=== PATIENT | male | born 1990 | race African-American/Black ===

== ENCOUNTER 2019-06-05 12:42 | Inpatient (IN) | payer OTHER ==
[~2019-06-05] VITALS: Ht 170.2 cm; Wt 45.5 kg
[~2019-06-05 12:42] MED LIST: ACET325T33 PO; ASC500 PO; ATEN-138 PO; BUSP5TAB2 PO; CAPS60CR2 TOP; DEXT37.54 PO; DULO30CA45 PO; Insulin Glargine SC; LAMO25TA8 PO; LYRI100 PO; NOVO3I SC; OMEP20CA17 PO; ONDA4TAB95 PO; POLY17PO6 PO; TRAZ-188 PO; UDMYL PO
[2019-06-05 14:15] VITALS: BP 103/66; PULSE 86; RESP 24
[2019-06-05 16:21] VITALS: Ht 170.2 cm; Wt 45.5 kg
[2019-06-05] MEDS ORDERED: ACETAMINOPHEN 325 MG TAB PO PRN (17:00)
[2019-06-05] MEDS ORDERED: NACL 0.9% 3 ML SYG IV SCH (17:00)
[2019-06-05] MEDS ORDERED: DOCUSATE SODIUM 100 MG CAP PO PRN (17:00)
[2019-06-05] MEDS ORDERED: AL HYDROX/MG HYDROX/SIMETH 30 ML CUP PO PRN (17:00)
[2019-06-05] MEDS ORDERED: GLUCOSE GEL 15 GRAM TUBE BUCCAL PRN (17:30)
[2019-06-05] MEDS ORDERED: GLUCOSE GEL 15 GRAM TUBE PO PRN ×2 (17:30)
[2019-06-05] MEDS ORDERED: GLUCAGON 1 MG INJ IM PRN (17:30)
[2019-06-05] MEDS ORDERED: DEXTROSE 50% 50 ML SYRINGE IV PRN ×2 (17:30)
[2019-06-05 18:00] VITALS: BP 109/68; PULSE 109; RESP 16
[2019-06-05] MEDS ORDERED: VANCOMYCIN IV PER PHARMACY XX SCH (18:30)
[2019-06-05] MEDS: KETOROLAC 30 MG INJ IV PRN ×2 (18:34→19:52)
[2019-06-05] MEDS ORDERED: VANCOMYCIN 1 GM 250 ML IVPB SCH (18:45)
[2019-06-05 19:36] VITALS: BP 121/79; PULSE 99; RESP 18
[2019-06-05] MEDS ORDERED: INSULIN GLARGINE [LANTus] (100 UNITS/ML) SYG SC SCH (20:00)
[2019-06-05] MEDS: ALBUTEROL/IPRATROPIUM (NEB) 3 ML AMP HHN SCH (20:54)
[2019-06-05] MEDS: CAPSAICIN 0.025% 60 GM CR TOP SCH (21:00)
[2019-06-05] MEDS: PREGABALIN 100 MG CAP PO SCH (21:18)
[2019-06-05] MEDS: PSYLLIUM (SUGAR FREE) PACKET PO SCH (21:18)
[2019-06-05] MEDS: FAMOTIDINE 20 MG INJ IV SCH (21:18)
[2019-06-05] MEDS: CEFTRIAXONE 2 GM/NS 50 ML IVPB SCH (21:18)
[2019-06-05 23:21] VITALS: BP 107/61; PULSE 104; RESP 21
[2019-06-06] MEDS: KETOROLAC 30 MG INJ IV PRN ×4 (00:26→20:22)
[2019-06-06] MEDS: ALBUTEROL/IPRATROPIUM (NEB) 3 ML AMP HHN SCH ×5 (02:06→20:03)
[2019-06-06] MEDS: HYDROCODONE/APAP (5/325) TAB PO PRN (02:52)
[2019-06-06 03:34] VITALS: BP 111/63; PULSE 101; RESP 23
[2019-06-06] MEDS: PANTOPRAZOLE (EC) 40 MG TAB PO SCH (05:56)
[2019-06-06] MEDS: ERYTHROMYCIN BASE (DR) 250 MG CAP PO SCH ×3 (05:56→22:05)
[2019-06-06] MEDS: INSULIN ASPART [NOVOLOG] 3 ML PEN SC SCH ×5 (08:00→20:39)
[2019-06-06 08:06] VITALS: BP 182/94; PULSE 102; RESP 22
[2019-06-06] MEDS: PSYLLIUM (SUGAR FREE) PACKET PO SCH (08:09)
[2019-06-06] MEDS: CAPSAICIN 0.025% 60 GM CR TOP SCH ×3 (08:09→21:00)
[2019-06-06] MEDS: PREGABALIN 100 MG CAP PO SCH ×2 (08:55→22:05)
[2019-06-06] MEDS: FAMOTIDINE 20 MG INJ IV SCH ×2 (08:55→20:29)
[2019-06-06] MEDS: DULOXETINE 30 MG CAP DR PO SCH (08:56)
[2019-06-06] MEDS ORDERED: CEFTRIAXONE 1 GM INJ IVPB SCH (09:00)
[2019-06-06] MEDS: ENOXAPARIN 30 MG/0.3 ML SYG SC SCH (09:17)
[2019-06-06] MEDS ORDERED: POTASSIUM CHLORIDE 100 ML IVPB ONE (10:00)
[2019-06-06] MEDS ORDERED: POTASSIUM PHOSPHATE 30 MM in SOD CHLORIDE 0.9% 250 ML IVPB ONE (12:00)
[2019-06-06 12:08] VITALS: BP 108/61; PULSE 118; RESP 18
[2019-06-06] MEDS: VANCOMYCIN 500 MG (PMX) 100 ML IVPB SCH (14:24)
[2019-06-06 15:35] VITALS: BP 112/60; PULSE 118; RESP 18
[2019-06-06] MEDS ORDERED: INSULIN ASPART [NOVOLOG] 3 ML PEN SC SCH (17:00)
[2019-06-06] MEDS ORDERED: SOD CHLORIDE 0.9% 500 ML IV ONE ×2 (17:30→21:30)
[2019-06-06 19:54] VITALS: BP 125/72; PULSE 112; RESP 18
[2019-06-06] MEDS ORDERED: INSULIN GLARGINE [LANTus] (100 UNITS/ML) SYG SC SCH (20:00)
[2019-06-06] MEDS: CEFTRIAXONE 2 GM/NS 50 ML IVPB SCH (20:29)
[2019-06-06] MEDS: INSULIN GLARGINE [LANTus] (100 UNITS/ML) SYG SC SCH (20:31)
[2019-06-06] MEDS: ALBUTEROL/IPRATROPIUM (NEB) 3 ML AMP HHN PRN (22:38)
[2019-06-06 23:13] VITALS: BP 120/75; PULSE 114; RESP 18
[2019-06-07] MEDS: VANCOMYCIN 500 MG (PMX) 100 ML IVPB SCH ×2 (00:19→12:26)
[2019-06-07] MEDS: ACCU-CHEK XX SCH (02:08)
[2019-06-07] MEDS: ALBUTEROL/IPRATROPIUM (NEB) 3 ML AMP HHN PRN ×2 (02:17→06:21)
[2019-06-07] MEDS: KETOROLAC 30 MG INJ IV PRN ×4 (02:54→20:45)
[2019-06-07 03:45] VITALS: BP 135/85; PULSE 110; RESP 18
[2019-06-07] MEDS: ERYTHROMYCIN BASE (DR) 250 MG CAP PO SCH ×3 (06:13→23:15)
[2019-06-07] MEDS: PANTOPRAZOLE (EC) 40 MG TAB PO SCH (06:13)
[2019-06-07] MEDS ORDERED: morphine 2 MG INJ IV ONE (06:48)
[2019-06-07 07:50] VITALS: BP 146/79; PULSE 114; RESP 18
[2019-06-07] MEDS: INSULIN ASPART [NOVOLOG] 3 ML PEN SC SCH ×4 (07:53→20:31)
[2019-06-07] MEDS: DULOXETINE 30 MG CAP DR PO SCH (08:04)
[2019-06-07] MEDS: PREGABALIN 100 MG CAP PO SCH ×2 (08:04→20:31)
[2019-06-07] MEDS: FAMOTIDINE 20 MG INJ IV SCH ×2 (08:06→20:30)
[2019-06-07] MEDS: ENOXAPARIN 30 MG/0.3 ML SYG SC SCH (08:08)
[2019-06-07] MEDS: CAPSAICIN 0.025% 60 GM CR TOP SCH ×3 (08:10→20:53)
[2019-06-07] MEDS: ALBUTEROL/IPRATROPIUM (NEB) 3 ML AMP HHN SCH ×3 (09:05→16:06)
[2019-06-07 12:40] VITALS: BP 124/83; PULSE 115; RESP 18
[2019-06-07] MEDS: traZODone 50 MG TAB PO SCH ×2 (15:14→20:31)
[2019-06-07 16:28] VITALS: BP 115/74; PULSE 125; RESP 19
[2019-06-07] MEDS ORDERED: POTASSIUM CHLORIDE (SR) 20 MEQ TAB PO STA (17:48)
[2019-06-07] MEDS ORDERED: POTASSIUM CHLORIDE 20 MEQ POWDER FOR ORAL SOLN PO ONE (18:00)
[2019-06-07] MEDS: ONDANSETRON 4 MG INJ IV PRN (19:28)
[2019-06-07 20:00] VITALS: BP 128/75; PULSE 119; RESP 19
[2019-06-07] MEDS: CEFTRIAXONE 2 GM/NS 50 ML IVPB SCH (20:24)
[2019-06-07] MEDS: INSULIN GLARGINE [LANTus] (100 UNITS/ML) SYG SC SCH (20:26)
[2019-06-07] MEDS: LEVALBUTEROL (NEB) 1.25 MG/0.5 ML AMP HHN PRN (21:36)
[2019-06-07] MEDS: LEVALBUTEROL (NEB) 0.63 MG/3 ML AMP HHN SCH (23:31)
[2019-06-08] MEDS ORDERED: ALBUTEROL/IPRATROPIUM (NEB) 3 ML AMP HHN SCH
[2019-06-08] MEDS: VANCOMYCIN 500 MG (PMX) 100 ML IVPB SCH ×2 (00:16→12:14)
[2019-06-08] MEDS: ACCU-CHEK XX SCH (02:00)
[2019-06-08 04:00] VITALS: BP 120/74; PULSE 112; RESP 20
[2019-06-08] MEDS: LEVALBUTEROL (NEB) 1.25 MG/0.5 ML AMP HHN PRN (04:02)
[2019-06-08] MEDS: KETOROLAC 30 MG INJ IV PRN ×2 (04:08→11:05)
[2019-06-08] MEDS: ERYTHROMYCIN BASE (DR) 250 MG CAP PO SCH ×3 (06:23→23:00)
[2019-06-08] MEDS: INSULIN ASPART [NOVOLOG] 3 ML PEN SC SCH ×4 (07:46→20:23)
[2019-06-08] MEDS: LEVALBUTEROL (NEB) 0.63 MG/3 ML AMP HHN SCH ×3 (07:51→23:26)
[2019-06-08] MEDS: traZODone 50 MG TAB PO SCH ×3 (08:47→20:24)
[2019-06-08] MEDS: CAPSAICIN 0.025% 60 GM CR TOP SCH ×3 (08:47→20:24)
[2019-06-08] MEDS: DULOXETINE 30 MG CAP DR PO SCH (08:47)
[2019-06-08] MEDS: ENOXAPARIN 40 MG/0.4 ML SYG SC SCH (08:49)
[2019-06-08 08:51] VITALS: BP 132/70; PULSE 110; RESP 19
[2019-06-08] MEDS: PREGABALIN 100 MG CAP PO SCH ×2 (08:54→20:23)
[2019-06-08] MEDS: FAMOTIDINE 20 MG TAB PO SCH ×2 (08:56→20:23)
[2019-06-08] MEDS: ALBUTEROL/IPRATROPIUM (NEB) 3 ML AMP HHN PRN (10:52)
[2019-06-08 12:03] VITALS: BP 115/66; PULSE 120; RESP 18
[2019-06-08 15:32] VITALS: BP 114/73; PULSE 120; RESP 18
[2019-06-08] MEDS: HYDROCODONE/APAP (5/325) TAB PO PRN (18:22)
[2019-06-08] MEDS: GUAIFENESIN/DM 5ML CUP PO PRN (18:28)
[2019-06-08] MEDS ORDERED: INSULIN GLARGINE [LANTus] (100 UNITS/ML) SYG SC SCH (20:00)
[2019-06-08] MEDS: CEFTRIAXONE 2 GM/NS 50 ML IVPB SCH (20:20)
[2019-06-08 20:53] VITALS: BP 106/84; PULSE 113; RESP 18
[2019-06-09] VITALS (7 sets, daily range): BP systolic 101–131; BP diastolic 59–81; PULSE 102–120; RESP 16–22
[2019-06-09] MEDS ORDERED: HYDROCODONE/APAP (10/325) TAB PO PRN
[2019-06-09] MEDS: VANCOMYCIN 500 MG (PMX) 100 ML IVPB SCH ×2 (00:24→11:07)
[2019-06-09] MEDS: FUROSEMIDE 40 MG TAB PO SCH ×2 (00:30→05:49)
[2019-06-09] MEDS: GUAIFENESIN/DM 5ML CUP PO PRN ×2 (00:38→11:07)
[2019-06-09] MEDS: ACCU-CHEK XX SCH (01:39)
[2019-06-09] MEDS: LEVALBUTEROL (NEB) 1.25 MG/0.5 ML AMP HHN PRN ×3 (05:46→21:31)
[2019-06-09] MEDS: LEVALBUTEROL (NEB) 0.63 MG/3 ML AMP HHN SCH ×2 (08:43→16:45)
[2019-06-09] MEDS: CAPSAICIN 0.025% 60 GM CR TOP SCH ×3 (08:54→21:00)
[2019-06-09] MEDS: traZODone 50 MG TAB PO SCH ×3 (09:00→21:00)
[2019-06-09] MEDS: ERYTHROMYCIN BASE (DR) 250 MG CAP PO SCH ×2 (09:00→21:34)
[2019-06-09] MEDS: FAMOTIDINE 20 MG TAB PO SCH ×2 (09:00→21:00)
[2019-06-09] MEDS: PREGABALIN 100 MG CAP PO SCH ×2 (09:00→21:00)
[2019-06-09] MEDS: DULOXETINE 30 MG CAP DR PO SCH (09:00)
[2019-06-09] MEDS: ENOXAPARIN 40 MG/0.4 ML SYG SC SCH (09:07)
[2019-06-09] MEDS: INSULIN ASPART [NOVOLOG] 3 ML PEN SC SCH ×4 (09:09→20:51)
[2019-06-09] MEDS: morphine 2 MG INJ IV PRN ×3 (14:08→22:47)
[2019-06-09] MEDS: PROMETHAZINE/CODEINE 5ML CUP PO PRN ×2 (16:55→22:01)
[2019-06-09] MEDS ORDERED: INSULIN ASPART [NOVOLOG] 3 ML PEN SC SCH (18:00)
[2019-06-09] MEDS ORDERED: INSULIN GLARGINE [LANTus] (100 UNITS/ML) SYG SC SCH (20:00)
[2019-06-09] MEDS: CEFTRIAXONE 2 GM/NS 50 ML IVPB SCH (20:36)
[2019-06-10] VITALS (11 sets, daily range): BP systolic 84–139; BP diastolic 55–93; PULSE 100–120; RESP 15–26
[2019-06-10] MEDS: LEVALBUTEROL (NEB) 0.63 MG/3 ML AMP HHN SCH ×3 (00:02→16:35)
[2019-06-10] MEDS: VANCOMYCIN 500 MG (PMX) 100 ML IVPB SCH ×2 (00:30→12:52)
[2019-06-10] MEDS: ACCU-CHEK XX SCH (02:00)
[2019-06-10] MEDS: morphine 2 MG INJ IV PRN ×5 (02:38→20:10)
[2019-06-10] MEDS: INSULIN ASPART [NOVOLOG] 3 ML PEN SC SCH ×7 (08:00→20:28)
[2019-06-10] MEDS: CAPSAICIN 0.025% 60 GM CR TOP SCH ×3 (09:00→20:18)
[2019-06-10] MEDS: PREGABALIN 100 MG CAP PO SCH (09:46)
[2019-06-10] MEDS: FAMOTIDINE 20 MG TAB PO SCH ×2 (09:46→20:10)
[2019-06-10] MEDS: DULOXETINE 30 MG CAP DR PO SCH (09:46)
[2019-06-10] MEDS: ERYTHROMYCIN BASE (DR) 250 MG CAP PO SCH ×2 (09:46→20:35)
[2019-06-10] MEDS: traZODone 50 MG TAB PO SCH ×3 (09:46→20:10)
[2019-06-10] MEDS: ENOXAPARIN 40 MG/0.4 ML SYG SC SCH (09:54)
[2019-06-10] MEDS: FUROSEMIDE 40 MG INJ IV SCH (12:55)
[2019-06-10] MEDS: METHYLPREDNISOLONE 125 MG INJ IV SCH ×2 (14:51→21:47)
[2019-06-10] MEDS ORDERED: MAGNESIUM SULFATE 4 GM/100 ML 100 ML IVPB ONE (15:30)
[2019-06-10] MEDS: CEFEPIME 1GM/50 ML (PMX) 50 ML IVPB SCH (16:29)
[2019-06-10] MEDS: ALBUTEROL/IPRATROPIUM (NEB) 3 ML AMP HHN PRN (20:56)
[2019-06-10] MEDS: GUAIFENESIN/DM 5ML CUP PO PRN (21:30)
[2019-06-10] MEDS: INSULIN GLARGINE [LANTus] (100 UNITS/ML) SYG SC SCH (21:49)
[2019-06-11] VITALS (24 sets, daily range): BP systolic 83–130; BP diastolic 50–94; PULSE 90–124; RESP 12–30
[2019-06-11] MEDS: VANCOMYCIN 500 MG (PMX) 100 ML IVPB SCH ×2 (00:38→12:26)
[2019-06-11] MEDS: morphine 2 MG INJ IV PRN ×6 (00:39→22:42)
[2019-06-11] MEDS: LEVALBUTEROL (NEB) 0.63 MG/3 ML AMP HHN SCH ×4 (00:50→15:38)
[2019-06-11] MEDS: PREGABALIN 100 MG CAP PO SCH ×3 (00:55→20:29)
[2019-06-11] MEDS: ACCU-CHEK XX SCH (01:33)
[2019-06-11] MEDS: CEFEPIME 1GM/50 ML (PMX) 50 ML IVPB SCH ×3 (02:57→20:29)
[2019-06-11] MEDS: ALBUTEROL/IPRATROPIUM (NEB) 3 ML AMP HHN PRN ×2 (02:59→19:46)
[2019-06-11] MEDS: FUROSEMIDE 40 MG INJ IV SCH (05:12)
[2019-06-11] MEDS: METHYLPREDNISOLONE 125 MG INJ IV SCH ×3 (05:13→21:17)
[2019-06-11] MEDS: INSULIN ASPART [NOVOLOG] 3 ML PEN SC SCH ×7 (07:35→20:33)
[2019-06-11] MEDS: FAMOTIDINE 20 MG TAB PO SCH ×2 (08:48→20:30)
[2019-06-11] MEDS: DULOXETINE 30 MG CAP DR PO SCH (08:48)
[2019-06-11] MEDS: CAPSAICIN 0.025% 60 GM CR TOP SCH ×3 (08:48→20:44)
[2019-06-11] MEDS: traZODone 50 MG TAB PO SCH ×3 (08:48→20:29)
[2019-06-11] MEDS: ERYTHROMYCIN BASE (DR) 250 MG CAP PO SCH ×2 (08:48→20:29)
[2019-06-11] MEDS: ENOXAPARIN 40 MG/0.4 ML SYG SC SCH (08:54)
[2019-06-11] MEDS: LEVALBUTEROL (NEB) 1.25 MG/0.5 ML AMP HHN PRN (12:01)
[2019-06-11] MEDS: LEVOFLOXACIN 500 MG TAB PO SCH (15:08)
[2019-06-11] MEDS: PROMETHAZINE/CODEINE 5ML CUP PO PRN (20:30)
[2019-06-11] MEDS: INSULIN GLARGINE [LANTus] (100 UNITS/ML) SYG SC SCH (20:31)
[2019-06-11] MEDS ORDERED: MELATONIN 5 MG TABLET PO SCH (21:00)
[2019-06-11] MEDS: VANCOMYCIN 750 MG (PMX) 250 ML IVPB SCH (22:42)
[2019-06-12] VITALS (24 sets, daily range): BP systolic 107–142; BP diastolic 63–102; PULSE 88–124; RESP 12–25
[2019-06-12] MEDS: LEVALBUTEROL (NEB) 0.63 MG/3 ML AMP HHN SCH ×3 (00:15→18:25)
[2019-06-12] MEDS: ACCU-CHEK XX SCH (02:56)
[2019-06-12] MEDS: LEVOFLOXACIN 500 MG TAB PO SCH (05:10)
[2019-06-12] MEDS: morphine 2 MG INJ IV PRN (05:11)
[2019-06-12] MEDS: FUROSEMIDE 40 MG INJ IV SCH (05:11)
[2019-06-12] MEDS: METHYLPREDNISOLONE 125 MG INJ IV SCH ×3 (05:11→22:21)
[2019-06-12] MEDS: INSULIN ASPART [NOVOLOG] 3 ML PEN SC SCH ×7 (08:46→20:47)
[2019-06-12] MEDS: CAPSAICIN 0.025% 60 GM CR TOP SCH ×3 (09:00→21:00)
[2019-06-12] MEDS: FAMOTIDINE 20 MG TAB PO SCH ×2 (09:49→20:44)
[2019-06-12] MEDS: ERYTHROMYCIN BASE (DR) 250 MG CAP PO SCH ×2 (09:49→20:44)
[2019-06-12] MEDS: DULOXETINE 30 MG CAP DR PO SCH (09:49)
[2019-06-12] MEDS: traZODone 50 MG TAB PO SCH ×3 (09:49→20:44)
[2019-06-12] MEDS: PREGABALIN 100 MG CAP PO SCH ×2 (09:52→20:44)
[2019-06-12] MEDS: ENOXAPARIN 40 MG/0.4 ML SYG SC SCH (09:58)
[2019-06-12] MEDS: PROMETHAZINE/CODEINE 5ML CUP PO PRN ×2 (10:26→21:02)
[2019-06-12] MEDS ORDERED: BACLOFEN 10 MG TAB PO PRN (10:30)
[2019-06-12] MEDS: CEFEPIME 1GM/50 ML (PMX) 50 ML IVPB SCH ×2 (11:19→20:44)
[2019-06-12] MEDS: VANCOMYCIN 750 MG (PMX) 250 ML IVPB SCH ×2 (11:51→22:24)
[2019-06-12] MEDS: ALBUTEROL/IPRATROPIUM (NEB) 3 ML AMP HHN PRN (13:45)
[2019-06-12] MEDS: LOPERAMIDE 2 MG CAP PO PRN (18:22)
[2019-06-12] MEDS: DIPHENHYDRAMINE 25 MG CAP PO PRN (20:44)
[2019-06-12] MEDS: MELATONIN 5 MG TABLET PO SCH (20:45)
[2019-06-12] MEDS: INSULIN GLARGINE [LANTus] (100 UNITS/ML) SYG SC SCH (20:46)
[2019-06-12] MEDS: NPH, HUMAN INSULIN ISOPHANE 3ML VIAL SC SCH (22:23)
[2019-06-13] VITALS (24 sets, daily range): BP systolic 100–139; BP diastolic 62–106; PULSE 88–113; RESP 12–26
[2019-06-13] MEDS: LEVALBUTEROL (NEB) 0.63 MG/3 ML AMP HHN SCH ×3 (00:11→16:40)
[2019-06-13] MEDS: ACCU-CHEK XX SCH (02:00)
[2019-06-13] MEDS: FUROSEMIDE 40 MG INJ IV SCH (05:48)
[2019-06-13] MEDS: METHYLPREDNISOLONE 125 MG INJ IV SCH ×3 (05:48→21:40)
[2019-06-13] MEDS: LEVOFLOXACIN 500 MG TAB PO SCH (05:52)
[2019-06-13] MEDS: NPH, HUMAN INSULIN ISOPHANE 3ML VIAL SC SCH ×3 (05:52→21:41)
[2019-06-13] MEDS: INSULIN ASPART [NOVOLOG] 3 ML PEN SC SCH ×7 (07:50→20:13)
[2019-06-13] MEDS: CAPSAICIN 0.025% 60 GM CR TOP SCH ×2 (08:40→12:12)
[2019-06-13] MEDS: CEFEPIME 1GM/50 ML (PMX) 50 ML IVPB SCH ×2 (08:41→20:10)
[2019-06-13] MEDS: ERYTHROMYCIN BASE (DR) 250 MG CAP PO SCH ×2 (08:41→20:10)
[2019-06-13] MEDS: DULOXETINE 30 MG CAP DR PO SCH (08:41)
[2019-06-13] MEDS: FAMOTIDINE 20 MG TAB PO SCH ×2 (08:41→20:10)
[2019-06-13] MEDS: traZODone 50 MG TAB PO SCH ×3 (08:41→20:10)
[2019-06-13] MEDS: PREGABALIN 100 MG CAP PO SCH ×2 (08:41→20:09)
[2019-06-13] MEDS: ENOXAPARIN 40 MG/0.4 ML SYG SC SCH (08:42)
[2019-06-13] MEDS: VANCOMYCIN 750 MG (PMX) 250 ML IVPB SCH ×2 (09:38→21:39)
[2019-06-13] MEDS: ONDANSETRON 4 MG INJ IV PRN (09:38)
[2019-06-13] MEDS: morphine 2 MG INJ IV PRN ×3 (13:06→21:39)
[2019-06-13] MEDS: LOPERAMIDE 2 MG CAP PO PRN (15:24)
[2019-06-13] MEDS: PROMETHAZINE/CODEINE 5ML CUP PO PRN (20:09)
[2019-06-13] MEDS: MELATONIN 5 MG TABLET PO SCH (20:10)
[2019-06-13] MEDS: INSULIN GLARGINE [LANTus] (100 UNITS/ML) SYG SC SCH (20:15)
[2019-06-13] MEDS: DIPHENHYDRAMINE 25 MG CAP PO PRN (21:40)
[2019-06-14] VITALS (24 sets, daily range): BP systolic 102–148; BP diastolic 62–103; PULSE 90–112; RESP 10–23
[2019-06-14] MEDS: LEVALBUTEROL (NEB) 0.63 MG/3 ML AMP HHN SCH ×4 (00:01→23:18)
[2019-06-14] MEDS: ACCU-CHEK XX SCH (02:00)
[2019-06-14] MEDS: morphine 2 MG INJ IV PRN ×5 (02:42→19:43)
[2019-06-14] MEDS: LOPERAMIDE 2 MG CAP PO PRN ×2 (04:42→22:33)
[2019-06-14] MEDS: METHYLPREDNISOLONE 125 MG INJ IV SCH (05:37)
[2019-06-14] MEDS: FUROSEMIDE 40 MG INJ IV SCH (05:42)
[2019-06-14] MEDS: LEVOFLOXACIN 500 MG TAB PO SCH (05:42)
[2019-06-14] MEDS: NPH, HUMAN INSULIN ISOPHANE 3ML VIAL SC SCH ×2 (05:49→20:33)
[2019-06-14] MEDS: ALBUTEROL/IPRATROPIUM (NEB) 3 ML AMP HHN PRN (08:27)
[2019-06-14] MEDS: LEVALBUTEROL (NEB) 1.25 MG/0.5 ML AMP HHN PRN (08:27)
[2019-06-14] MEDS: INSULIN ASPART [NOVOLOG] 3 ML PEN SC SCH ×7 (08:30→20:32)
[2019-06-14] MEDS: DULOXETINE 30 MG CAP DR PO SCH (08:32)
[2019-06-14] MEDS: FAMOTIDINE 20 MG TAB PO SCH ×2 (08:32→20:27)
[2019-06-14] MEDS: traZODone 50 MG TAB PO SCH ×3 (08:32→20:27)
[2019-06-14] MEDS: ERYTHROMYCIN BASE (DR) 250 MG CAP PO SCH ×2 (08:32→21:30)
[2019-06-14] MEDS: CEFEPIME 1GM/50 ML (PMX) 50 ML IVPB SCH (08:32)
[2019-06-14] MEDS: ENOXAPARIN 40 MG/0.4 ML SYG SC SCH (08:34)
[2019-06-14] MEDS: PREGABALIN 100 MG CAP PO SCH ×2 (08:55→20:27)
[2019-06-14] MEDS: VANCOMYCIN 750 MG (PMX) 250 ML IVPB SCH (10:56)
[2019-06-14] MEDS: PROMETHAZINE/CODEINE 5ML CUP PO PRN ×2 (11:00→15:09)
[2019-06-14] MEDS: MELATONIN 5 MG TABLET PO SCH (20:27)
[2019-06-14] MEDS: METHYLPREDNISOLONE 40 MG INJ IV SCH (20:27)
[2019-06-14] MEDS: INSULIN GLARGINE [LANTus] (100 UNITS/ML) SYG SC SCH (20:33)
[2019-06-14] MEDS: DIPHENHYDRAMINE 25 MG CAP PO PRN (21:30)
[2019-06-15] VITALS (21 sets, daily range): BP systolic 106–138; BP diastolic 63–99; PULSE 89–120; RESP 13–27
[2019-06-15] MEDS: morphine 2 MG INJ IV PRN ×6 (00:07→21:25)
[2019-06-15] MEDS: ACCU-CHEK XX SCH (02:00)
[2019-06-15] MEDS: LEVOFLOXACIN 500 MG TAB PO SCH (05:11)
[2019-06-15] MEDS: LOPERAMIDE 2 MG CAP PO PRN ×2 (05:11→17:10)
[2019-06-15] MEDS: FUROSEMIDE 40 MG INJ IV SCH (05:11)
[2019-06-15] MEDS: INSULIN ASPART [NOVOLOG] 3 ML PEN SC SCH ×7 (08:08→21:38)
[2019-06-15] MEDS: traZODone 50 MG TAB PO SCH ×3 (08:10→21:24)
[2019-06-15] MEDS: METHYLPREDNISOLONE 40 MG INJ IV SCH ×2 (08:11→21:25)
[2019-06-15] MEDS: FAMOTIDINE 20 MG TAB PO SCH ×2 (08:11→21:24)
[2019-06-15] MEDS: ERYTHROMYCIN BASE (DR) 250 MG CAP PO SCH ×2 (08:11→23:20)
[2019-06-15] MEDS: DULOXETINE 30 MG CAP DR PO SCH (08:11)
[2019-06-15] MEDS: PREGABALIN 100 MG CAP PO SCH ×2 (08:11→21:24)
[2019-06-15] MEDS: ENOXAPARIN 40 MG/0.4 ML SYG SC SCH (08:13)
[2019-06-15] MEDS: LEVALBUTEROL (NEB) 0.63 MG/3 ML AMP HHN SCH ×3 (09:08→23:06)
[2019-06-15] MEDS: NPH, HUMAN INSULIN ISOPHANE 3ML VIAL SC SCH ×2 (09:39→21:37)
[2019-06-15] MEDS: PROMETHAZINE/CODEINE 5ML CUP PO PRN (14:15)
[2019-06-15] MEDS: MELATONIN 5 MG TABLET PO SCH (21:24)
[2019-06-15] MEDS: INSULIN GLARGINE [LANTus] (100 UNITS/ML) SYG SC SCH (21:37)
[2019-06-16] VITALS: BP 129/81; PULSE 103; RESP 20
[2019-06-16] MEDS: ACCU-CHEK XX SCH (02:51)
[2019-06-16] MEDS: LOPERAMIDE 2 MG CAP PO PRN (03:32)
[2019-06-16] MEDS: morphine 2 MG INJ IV PRN ×5 (03:32→23:36)
[2019-06-16 04:00] VITALS: BP 122/75; PULSE 101; RESP 18
[2019-06-16] MEDS: FUROSEMIDE 40 MG INJ IV SCH (05:29)
[2019-06-16] MEDS: LEVOFLOXACIN 500 MG TAB PO SCH (05:29)
[2019-06-16 07:37] VITALS: BP 109/68; PULSE 114; RESP 18
[2019-06-16] MEDS: LEVALBUTEROL (NEB) 0.63 MG/3 ML AMP HHN SCH ×3 (08:00→23:55)
[2019-06-16] MEDS: INSULIN ASPART [NOVOLOG] 3 ML PEN SC SCH ×7 (08:31→21:00)
[2019-06-16] MEDS: PREGABALIN 100 MG CAP PO SCH ×2 (10:39→21:28)
[2019-06-16] MEDS: ERYTHROMYCIN BASE (DR) 250 MG CAP PO SCH (10:39)
[2019-06-16] MEDS: METHYLPREDNISOLONE 40 MG INJ IV SCH ×2 (10:39→21:23)
[2019-06-16] MEDS: traZODone 50 MG TAB PO SCH ×3 (10:40→21:28)
[2019-06-16] MEDS: FAMOTIDINE 20 MG TAB PO SCH (10:40)
[2019-06-16] MEDS: DULOXETINE 30 MG CAP DR PO SCH (10:40)
[2019-06-16] MEDS: ENOXAPARIN 40 MG/0.4 ML SYG SC SCH (10:50)
[2019-06-16] MEDS: NPH, HUMAN INSULIN ISOPHANE 3ML VIAL SC SCH ×2 (10:50→21:31)
[2019-06-16 12:07] VITALS: BP 112/73; PULSE 113; RESP 18
[2019-06-16] MEDS: NYSTATIN SUSP 5 ML CUP PO SCH ×2 (17:18→21:27)
[2019-06-16] MEDS: GUAIFENESIN/DM 5ML CUP PO PRN (17:19)
[2019-06-16] MEDS: ONDANSETRON 4 MG INJ IV PRN (17:36)
[2019-06-16] MEDS: PROMETHAZINE/CODEINE 5ML CUP PO PRN (17:36)
[2019-06-16] MEDS: INSULIN GLARGINE [LANTus] (100 UNITS/ML) SYG SC SCH (19:56)
[2019-06-16 20:19] VITALS: BP 120/77; PULSE 97; RESP 18
[2019-06-16] MEDS: LACTOBACILLUS RHAMNOSUS CAP PO SCH (21:27)
[2019-06-16] MEDS: MELATONIN 5 MG TABLET PO SCH (21:28)
[2019-06-17] MEDS: PROMETHAZINE/CODEINE 5ML CUP PO PRN ×4 (00:45→22:24)
[2019-06-17] MEDS: ACCU-CHEK XX SCH (01:29)
[2019-06-17 03:51] VITALS: BP 116/67; PULSE 108; RESP 20
[2019-06-17] MEDS: morphine 2 MG INJ IV PRN ×5 (03:51→22:24)
[2019-06-17] MEDS: LEVOFLOXACIN 500 MG TAB PO SCH (05:59)
[2019-06-17] MEDS: FUROSEMIDE 40 MG INJ IV SCH (06:00)
[2019-06-17 07:47] VITALS: BP 118/67; PULSE 102; RESP 18
[2019-06-17] MEDS: LEVALBUTEROL (NEB) 0.63 MG/3 ML AMP HHN SCH ×2 (08:00→16:47)
[2019-06-17] MEDS: METHYLPREDNISOLONE 40 MG INJ IV SCH ×2 (08:27→21:04)
[2019-06-17] MEDS: traZODone 50 MG TAB PO SCH ×3 (08:28→21:03)
[2019-06-17] MEDS: LACTOBACILLUS RHAMNOSUS CAP PO SCH ×2 (08:28→21:03)
[2019-06-17] MEDS: DULOXETINE 30 MG CAP DR PO SCH (08:28)
[2019-06-17] MEDS: NYSTATIN SUSP 5 ML CUP PO SCH ×4 (08:28→21:04)
[2019-06-17] MEDS: PREGABALIN 100 MG CAP PO SCH ×2 (08:28→21:03)
[2019-06-17] MEDS: FAMOTIDINE 20 MG TAB PO SCH (08:28)
[2019-06-17] MEDS: INSULIN ASPART [NOVOLOG] 3 ML PEN SC SCH ×7 (08:29→21:34)
[2019-06-17] MEDS: ENOXAPARIN 40 MG/0.4 ML SYG SC SCH (08:30)
[2019-06-17] MEDS: NPH, HUMAN INSULIN ISOPHANE 3ML VIAL SC SCH ×2 (08:31→21:31)
[2019-06-17] MEDS: BALSAM PERU/CASTOR OIL 60 GM TUBE TOP SCH (08:32)
[2019-06-17] MEDS: ALBUTEROL/IPRATROPIUM (NEB) 3 ML AMP HHN PRN (09:06)
[2019-06-17 11:44] VITALS: BP 119/75; PULSE 112; RESP 18
[2019-06-17] MEDS ORDERED: INSULIN ASPART [NOVOLOG] 3 ML PEN SC ONE (13:30)
[2019-06-17] MEDS ORDERED: ACCU-CHEK XX ONE (13:30)
[2019-06-17 16:46] VITALS: BP 125/69; PULSE 108; RESP 18
[2019-06-17 20:00] VITALS: BP 127/78; PULSE 112; RESP 20
[2019-06-17] MEDS: MELATONIN 5 MG TABLET PO SCH (21:03)
[2019-06-17] MEDS: CHOLESTYRAMINE 4 GM PACKET PO SCH (21:03)
[2019-06-17] MEDS: INSULIN GLARGINE [LANTus] (100 UNITS/ML) SYG SC SCH (21:31)
[2019-06-18] VITALS: BP 111/55; PULSE 60; RESP 19
[2019-06-18] MEDS: LEVALBUTEROL (NEB) 0.63 MG/3 ML AMP HHN SCH ×3 (00:11→16:00)
[2019-06-18] MEDS: DIPHENHYDRAMINE 25 MG CAP PO PRN (00:48)
[2019-06-18] MEDS: LOPERAMIDE 2 MG CAP PO PRN ×2 (00:48→15:17)
[2019-06-18] MEDS: ACCU-CHEK XX SCH (02:00)
[2019-06-18 04:00] VITALS: BP 146/67; PULSE 106; RESP 20
[2019-06-18] MEDS: morphine 2 MG INJ IV PRN ×5 (04:01→21:12)
[2019-06-18] MEDS: PROMETHAZINE/CODEINE 5ML CUP PO PRN ×5 (04:01→21:11)
[2019-06-18] MEDS: FUROSEMIDE 40 MG INJ IV SCH (06:50)
[2019-06-18] MEDS: LEVOFLOXACIN 500 MG TAB PO SCH (06:51)
[2019-06-18 07:00] VITALS: BP 118/74; PULSE 112; RESP 19
[2019-06-18] MEDS: INSULIN ASPART [NOVOLOG] 3 ML PEN SC SCH ×7 (08:00→21:18)
[2019-06-18] MEDS: METHYLPREDNISOLONE 40 MG INJ IV SCH ×2 (08:43→21:08)
[2019-06-18] MEDS: NPH, HUMAN INSULIN ISOPHANE 3ML VIAL SC SCH ×2 (08:45→21:17)
[2019-06-18] MEDS: CHOLESTYRAMINE 4 GM PACKET PO SCH ×2 (08:47→12:28)
[2019-06-18] MEDS: PREGABALIN 100 MG CAP PO SCH ×2 (08:48→21:06)
[2019-06-18] MEDS: DULOXETINE 30 MG CAP DR PO SCH (08:48)
[2019-06-18] MEDS: LACTOBACILLUS RHAMNOSUS CAP PO SCH ×2 (08:48→21:06)
[2019-06-18] MEDS: traZODone 50 MG TAB PO SCH ×3 (08:48→21:06)
[2019-06-18] MEDS: FAMOTIDINE 20 MG TAB PO SCH (08:48)
[2019-06-18] MEDS: NYSTATIN SUSP 5 ML CUP PO SCH ×4 (08:48→21:07)
[2019-06-18] MEDS: ENOXAPARIN 40 MG/0.4 ML SYG SC SCH (09:00)
[2019-06-18] MEDS: BALSAM PERU/CASTOR OIL 60 GM TUBE TOP SCH (09:02)
[2019-06-18 11:00] VITALS: BP 126/84; PULSE 102; RESP 19
[2019-06-18 15:22] VITALS: BP 129/86; PULSE 109; RESP 18
[2019-06-18] MEDS: INSULIN GLARGINE [LANTus] (100 UNITS/ML) SYG SC SCH (19:45)
[2019-06-18 19:51] VITALS: BP 113/76; PULSE 123; RESP 18
[2019-06-18] MEDS: MELATONIN 5 MG TABLET PO SCH (21:07)
[2019-06-18] MEDS ORDERED: INSULIN ASPART [NOVOLOG] 3 ML PEN SC ONE (22:00)
[2019-06-19] MEDS: LEVALBUTEROL (NEB) 0.63 MG/3 ML AMP HHN SCH ×2 (00:45→09:44)
[2019-06-19 01:19] VITALS: BP 110/69; PULSE 120; RESP 18
[2019-06-19] MEDS: CHOLESTYRAMINE 4 GM PACKET PO SCH ×4 (01:24→22:23)
[2019-06-19] MEDS: morphine 2 MG INJ IV PRN ×6 (01:25→22:20)
[2019-06-19] MEDS: PROMETHAZINE/CODEINE 5ML CUP PO PRN ×6 (01:25→23:31)
[2019-06-19] MEDS: ACCU-CHEK XX SCH (01:37)
[2019-06-19 04:00] VITALS: BP 115/78; PULSE 109; RESP 19
[2019-06-19] MEDS: LEVOFLOXACIN 500 MG TAB PO SCH (06:56)
[2019-06-19] MEDS: FUROSEMIDE 40 MG INJ IV SCH (06:56)
[2019-06-19 07:15] VITALS: BP 127/89; PULSE 109; RESP 18
[2019-06-19] MEDS: INSULIN ASPART [NOVOLOG] 3 ML PEN SC SCH ×7 (08:03→21:14)
[2019-06-19] MEDS ORDERED: NPH, HUMAN INSULIN ISOPHANE 3ML VIAL SC SCH (09:00)
[2019-06-19] MEDS: BALSAM PERU/CASTOR OIL 60 GM TUBE TOP SCH (09:09)
[2019-06-19] MEDS: ENOXAPARIN 40 MG/0.4 ML SYG SC SCH (09:10)
[2019-06-19] MEDS: METHYLPREDNISOLONE 40 MG INJ IV SCH ×2 (09:11→22:17)
[2019-06-19] MEDS: NYSTATIN SUSP 5 ML CUP PO SCH ×4 (09:11→22:17)
[2019-06-19] MEDS: PREGABALIN 100 MG CAP PO SCH ×2 (09:13→21:00)
[2019-06-19] MEDS: FAMOTIDINE 20 MG TAB PO SCH (09:13)
[2019-06-19] MEDS: DULOXETINE 30 MG CAP DR PO SCH (09:13)
[2019-06-19] MEDS: LACTOBACILLUS RHAMNOSUS CAP PO SCH ×2 (09:14→22:17)
[2019-06-19] MEDS: traZODone 50 MG TAB PO SCH ×3 (09:14→22:17)
[2019-06-19 15:54] VITALS: BP 127/79; PULSE 117; RESP 18
[2019-06-19] MEDS: ALPRAZOLAM 0.5 MG TAB PO SCH ×2 (16:24→22:17)
[2019-06-19] MEDS ORDERED: INSULIN GLARGINE [LANTus] (100 UNITS/ML) SYG SC SCH (20:00)
[2019-06-19 20:35] VITALS: BP 115/73; PULSE 111; RESP 17
[2019-06-19] MEDS: CAPSAICIN 0.025% 60 GM CR TOP SCH (21:00)
[2019-06-19] MEDS: NPH, HUMAN INSULIN ISOPHANE 3ML VIAL SC SCH (21:12)
[2019-06-19] MEDS: MELATONIN 5 MG TABLET PO SCH (23:31)
[2019-06-19] MEDS: INSULIN GLARGINE [LANTus] (100 UNITS/ML) SYG SC SCH (23:32)
[2019-06-19] MEDS: ALBUTEROL/IPRATROPIUM (NEB) 3 ML AMP HHN PRN (23:41)
[2019-06-20] VITALS: BP 118/72; PULSE 96; RESP 17
[2019-06-20] MEDS: ACCU-CHEK XX SCH (02:00)
[2019-06-20] MEDS: morphine 2 MG INJ IV PRN ×5 (02:34→22:52)
[2019-06-20] MEDS: PROMETHAZINE/CODEINE 5ML CUP PO PRN (05:14)
[2019-06-20] MEDS: LEVOFLOXACIN 500 MG TAB PO SCH (05:14)
[2019-06-20] MEDS ORDERED: FUROSEMIDE 40 MG INJ IV SCH (06:00)
[2019-06-20] MEDS: INSULIN ASPART [NOVOLOG] 3 ML PEN SC SCH ×7 (08:14→21:53)
[2019-06-20] MEDS: ENOXAPARIN 40 MG/0.4 ML SYG SC SCH (08:15)
[2019-06-20] MEDS: NPH, HUMAN INSULIN ISOPHANE 3ML VIAL SC SCH (08:16)
[2019-06-20] MEDS: METHYLPREDNISOLONE 40 MG INJ IV SCH (08:16)
[2019-06-20] MEDS: THIAMINE 100 MG TAB PO SCH (08:17)
[2019-06-20] MEDS: LACTOBACILLUS RHAMNOSUS CAP PO SCH ×2 (08:17→21:36)
[2019-06-20] MEDS: PREGABALIN 100 MG CAP PO SCH ×2 (08:17→21:36)
[2019-06-20] MEDS: DULOXETINE 30 MG CAP DR PO SCH (08:17)
[2019-06-20] MEDS: NYSTATIN SUSP 5 ML CUP PO SCH ×4 (08:18→21:36)
[2019-06-20] MEDS: FAMOTIDINE 20 MG TAB PO SCH (08:18)
[2019-06-20] MEDS: ALPRAZOLAM 0.5 MG TAB PO SCH (08:18)
[2019-06-20] MEDS: CHOLESTYRAMINE 4 GM PACKET PO SCH ×3 (08:19→21:36)
[2019-06-20] MEDS: traZODone 50 MG TAB PO SCH ×3 (08:19→21:36)
[2019-06-20 08:20] VITALS: BP 117/77; PULSE 101; RESP 16
[2019-06-20] MEDS: FUROSEMIDE 40 MG TAB PO SCH (08:21)
[2019-06-20] MEDS: CAPSAICIN 0.025% 60 GM CR TOP SCH ×3 (08:33→21:00)
[2019-06-20] MEDS: BALSAM PERU/CASTOR OIL 60 GM TUBE TOP SCH (08:33)
[2019-06-20] MEDS ORDERED: IOHEXOL 100 ML ONE (09:49)
[2019-06-20] MEDS ORDERED: SOD CHLORIDE 0.9% 100 ML ONE (09:49)
[2019-06-20] MEDS ORDERED: DEXTROSE 5%-0.45% NACL 1,000 ML IV SCH ×2 (12:00→19:30)
[2019-06-20 13:50] VITALS: BP 102/67; PULSE 110; RESP 18
[2019-06-20] MEDS: PSYLLIUM (SUGAR FREE) PACKET PO SCH ×2 (17:09→21:36)
[2019-06-20 19:18] VITALS: BP 112/69; PULSE 112; RESP 18
[2019-06-20] MEDS: ALPRAZOLAM 1 MG TAB PO SCH (20:05)
[2019-06-20] MEDS: BUSPIRONE 5 MG TAB PO SCH (20:06)
[2019-06-20] MEDS: INSULIN GLARGINE [LANTus] (100 UNITS/ML) SYG SC SCH (20:12)
[2019-06-20] MEDS: MELATONIN 5 MG TABLET PO SCH (21:36)
[2019-06-20] MEDS ORDERED: INSULIN ASPART [NOVOLOG] 3 ML PEN SC ONE (22:30)
[2019-06-20] MEDS ORDERED: ACCU-CHEK XX ONE (22:30)
[2019-06-20] MEDS: LOPERAMIDE 2 MG CAP PO PRN (23:01)
[2019-06-21] MEDS: HYDROCODONE/HOMATROPINE 5ML CUP PO PRN ×4 (01:19→21:55)
[2019-06-21] MEDS: ACCU-CHEK XX SCH (01:21)
[2019-06-21 02:00] VITALS: BP 129/83; PULSE 79; RESP 18
[2019-06-21] MEDS: ALBUTEROL/IPRATROPIUM (NEB) 3 ML AMP HHN PRN (02:39)
[2019-06-21] MEDS: morphine 2 MG INJ IV PRN ×5 (02:46→21:50)
[2019-06-21 07:38] VITALS: BP 112/63; PULSE 101; RESP 18
[2019-06-21] MEDS: ALPRAZOLAM 1 MG TAB PO SCH ×2 (08:12→20:18)
[2019-06-21] MEDS: PSYLLIUM (SUGAR FREE) PACKET PO SCH ×3 (08:12→20:39)
[2019-06-21] MEDS: CHOLESTYRAMINE 4 GM PACKET PO SCH ×3 (08:12→20:18)
[2019-06-21] MEDS: BUSPIRONE 5 MG TAB PO SCH ×2 (08:12→20:18)
[2019-06-21] MEDS: LACTOBACILLUS RHAMNOSUS CAP PO SCH ×2 (08:12→20:18)
[2019-06-21] MEDS: THIAMINE 100 MG TAB PO SCH (08:13)
[2019-06-21] MEDS: predniSONE 10 MG TAB PO SCH (08:13)
[2019-06-21] MEDS: traZODone 50 MG TAB PO SCH ×3 (08:13→20:18)
[2019-06-21] MEDS: DULOXETINE 30 MG CAP DR PO SCH (08:13)
[2019-06-21] MEDS: FAMOTIDINE 20 MG TAB PO SCH (08:13)
[2019-06-21] MEDS: PREGABALIN 100 MG CAP PO SCH ×2 (08:13→20:18)
[2019-06-21] MEDS: FUROSEMIDE 40 MG TAB PO SCH (08:14)
[2019-06-21] MEDS: ENOXAPARIN 40 MG/0.4 ML SYG SC SCH (08:15)
[2019-06-21] MEDS: INSULIN ASPART [NOVOLOG] 3 ML PEN SC SCH ×7 (08:17→20:31)
[2019-06-21] MEDS: NYSTATIN SUSP 5 ML CUP PO SCH ×4 (08:22→20:19)
[2019-06-21] MEDS: CAPSAICIN 0.025% 60 GM CR TOP SCH ×3 (08:24→20:24)
[2019-06-21] MEDS: BALSAM PERU/CASTOR OIL 60 GM TUBE TOP SCH (08:25)
[2019-06-21 14:00] VITALS: BP 88/50; PULSE 120; RESP 18
[2019-06-21] MEDS: LEVALBUTEROL (NEB) 1.25 MG/0.5 ML AMP HHN PRN (18:02)
[2019-06-21 19:48] VITALS: BP 110/57; PULSE 102; RESP 18
[2019-06-21] MEDS: MELATONIN 5 MG TABLET PO SCH (20:18)
[2019-06-21] MEDS: INSULIN GLARGINE [LANTus] (100 UNITS/ML) SYG SC SCH (20:27)
[2019-06-21] MEDS ORDERED: ACCU-CHEK XX ONE (20:30)
[2019-06-21] MEDS ORDERED: INSULIN ASPART [NOVOLOG] 3 ML PEN SC ONE (20:30)
[2019-06-22] MEDS ORDERED: INSULIN ASPART [NOVOLOG] 3 ML PEN SC ONE ×2 (00:30→17:30)
[2019-06-22] MEDS ORDERED: ACCU-CHEK XX ONE ×2 (00:30→18:00)
[2019-06-22] MEDS: PROMETHAZINE/CODEINE 5ML CUP PO PRN ×2 (00:45→10:54)
[2019-06-22 01:54] VITALS: BP 128/78; PULSE 102; RESP 18
[2019-06-22] MEDS: morphine 2 MG INJ IV PRN ×5 (01:57→20:17)
[2019-06-22] MEDS: ACCU-CHEK XX SCH (02:00)
[2019-06-22 07:32] VITALS: BP 126/84; PULSE 100; RESP 18
[2019-06-22] MEDS: PREGABALIN 100 MG CAP PO SCH ×2 (08:32→20:09)
[2019-06-22] MEDS: DULOXETINE 30 MG CAP DR PO SCH (08:32)
[2019-06-22] MEDS: CHOLESTYRAMINE 4 GM PACKET PO SCH ×3 (08:32→20:10)
[2019-06-22] MEDS: FUROSEMIDE 40 MG TAB PO SCH (08:33)
[2019-06-22] MEDS: FAMOTIDINE 20 MG TAB PO SCH (08:33)
[2019-06-22] MEDS: THIAMINE 100 MG TAB PO SCH (08:33)
[2019-06-22] MEDS: BUSPIRONE 5 MG TAB PO SCH ×2 (08:33→20:10)
[2019-06-22] MEDS: LACTOBACILLUS RHAMNOSUS CAP PO SCH ×2 (08:33→20:09)
[2019-06-22] MEDS: predniSONE 10 MG TAB PO SCH (08:33)
[2019-06-22] MEDS: traZODone 50 MG TAB PO SCH ×3 (08:33→20:09)
[2019-06-22] MEDS: NYSTATIN SUSP 5 ML CUP PO SCH ×4 (08:34→20:09)
[2019-06-22] MEDS: ALPRAZOLAM 1 MG TAB PO SCH ×2 (08:34→20:10)
[2019-06-22] MEDS: INSULIN ASPART [NOVOLOG] 3 ML PEN SC SCH ×7 (08:36→20:11)
[2019-06-22] MEDS: ENOXAPARIN 40 MG/0.4 ML SYG SC SCH (08:38)
[2019-06-22] MEDS: NPH, HUMAN INSULIN ISOPHANE 3ML VIAL SC SCH (08:38)
[2019-06-22] MEDS: PSYLLIUM (SUGAR FREE) PACKET PO SCH ×3 (08:43→20:25)
[2019-06-22] MEDS: BALSAM PERU/CASTOR OIL 60 GM TUBE TOP SCH (08:44)
[2019-06-22] MEDS: CAPSAICIN 0.025% 60 GM CR TOP SCH (08:45)
[2019-06-22] MEDS: LAMOTRIGINE 25 MG TAB PO SCH ×2 (10:51→20:09)
[2019-06-22] MEDS: LOPERAMIDE 2 MG CAP PO PRN ×2 (10:54→22:02)
[2019-06-22 14:19] VITALS: BP 97/54; RESP 21
[2019-06-22 20:00] VITALS: BP 119/71; PULSE 100; RESP 18
[2019-06-22] MEDS: MELATONIN 5 MG TABLET PO SCH (20:09)
[2019-06-22] MEDS: INSULIN GLARGINE [LANTus] (100 UNITS/ML) SYG SC SCH (20:10)
[2019-06-23] MEDS: PROMETHAZINE/CODEINE 5ML CUP PO PRN ×2 (00:59→17:09)
[2019-06-23] MEDS: morphine 2 MG INJ IV PRN ×5 (00:59→18:14)
[2019-06-23] MEDS ORDERED: INSULIN ASPART [NOVOLOG] 3 ML PEN SC ONE (01:20)
[2019-06-23] MEDS ORDERED: ACCU-CHEK XX ONE (01:30)
[2019-06-23] MEDS: ACCU-CHEK XX SCH (01:33)
[2019-06-23 02:00] VITALS: BP 113/68; PULSE 100; RESP 17
[2019-06-23 07:26] VITALS: BP 123/80; PULSE 105; RESP 18
[2019-06-23] MEDS: NYSTATIN SUSP 5 ML CUP PO SCH ×4 (08:48→21:03)
[2019-06-23] MEDS: CHOLESTYRAMINE 4 GM PACKET PO SCH ×3 (08:49→21:03)
[2019-06-23] MEDS: predniSONE 10 MG TAB PO SCH (08:49)
[2019-06-23] MEDS: BUSPIRONE 5 MG TAB PO SCH ×2 (08:49→21:03)
[2019-06-23] MEDS: FAMOTIDINE 20 MG TAB PO SCH (08:49)
[2019-06-23] MEDS: PREGABALIN 100 MG CAP PO SCH ×2 (08:49→21:03)
[2019-06-23] MEDS: ALBUTEROL/IPRATROPIUM (NEB) 3 ML AMP HHN PRN (08:49)
[2019-06-23] MEDS: DULOXETINE 30 MG CAP DR PO SCH (08:49)
[2019-06-23] MEDS: THIAMINE 100 MG TAB PO SCH (08:50)
[2019-06-23] MEDS: LAMOTRIGINE 25 MG TAB PO SCH ×2 (08:50→21:03)
[2019-06-23] MEDS: LACTOBACILLUS RHAMNOSUS CAP PO SCH ×2 (08:50→21:03)
[2019-06-23] MEDS: FUROSEMIDE 40 MG TAB PO SCH (08:50)
[2019-06-23] MEDS: traZODone 50 MG TAB PO SCH ×3 (08:50→21:03)
[2019-06-23] MEDS: PSYLLIUM (SUGAR FREE) PACKET PO SCH ×3 (08:50→21:00)
[2019-06-23] MEDS: ALPRAZOLAM 1 MG TAB PO SCH ×2 (08:51→21:03)
[2019-06-23] MEDS: INSULIN ASPART [NOVOLOG] 3 ML PEN SC SCH ×7 (08:52→21:00)
[2019-06-23] MEDS: ENOXAPARIN 40 MG/0.4 ML SYG SC SCH (08:53)
[2019-06-23] MEDS: NPH, HUMAN INSULIN ISOPHANE 3ML VIAL SC SCH (08:54)
[2019-06-23] MEDS: ERYTHROMYCIN BASE (DR) 250 MG CAP PO SCH ×2 (09:04→21:03)
[2019-06-23] MEDS: BALSAM PERU/CASTOR OIL 60 GM TUBE TOP SCH (09:04)
[2019-06-23] MEDS ORDERED: COLLAGENASE 5 GM (UD JAR) TOP ONE (12:30)
[2019-06-23 14:57] VITALS: BP 96/58; PULSE 82; RESP 18
[2019-06-23] MEDS: LOPERAMIDE 2 MG CAP PO PRN (17:18)
[2019-06-23 19:24] VITALS: BP 116/58; PULSE 125; RESP 18
[2019-06-23] MEDS: INSULIN GLARGINE [LANTus] (100 UNITS/ML) SYG SC SCH (21:01)
[2019-06-23] MEDS: MELATONIN 5 MG TABLET PO SCH (21:04)
[2019-06-24] MEDS: ACCU-CHEK XX SCH (02:00)
[2019-06-24 02:05] VITALS: BP 114/76; PULSE 102; RESP 18
[2019-06-24] MEDS: morphine 2 MG INJ IV PRN ×3 (02:30→11:34)
[2019-06-24 07:31] VITALS: BP 117/79; PULSE 109; RESP 20
[2019-06-24] MEDS: ERYTHROMYCIN BASE (DR) 250 MG CAP PO SCH (08:29)
[2019-06-24] MEDS: CHOLESTYRAMINE 4 GM PACKET PO SCH ×2 (08:29→12:12)
[2019-06-24] MEDS: NYSTATIN SUSP 5 ML CUP PO SCH ×2 (08:29→12:12)
[2019-06-24] MEDS: LACTOBACILLUS RHAMNOSUS CAP PO SCH (08:30)
[2019-06-24] MEDS: DULOXETINE 30 MG CAP DR PO SCH (08:30)
[2019-06-24] MEDS: ALPRAZOLAM 1 MG TAB PO SCH (08:30)
[2019-06-24] MEDS: predniSONE 10 MG TAB PO SCH (08:30)
[2019-06-24] MEDS: THIAMINE 100 MG TAB PO SCH (08:30)
[2019-06-24] MEDS: BUSPIRONE 5 MG TAB PO SCH (08:30)
[2019-06-24] MEDS: NPH, HUMAN INSULIN ISOPHANE 3ML VIAL SC SCH (08:36)
[2019-06-24] MEDS: INSULIN ASPART [NOVOLOG] 3 ML PEN SC SCH ×4 (08:37→11:45)
[2019-06-24] MEDS: traZODone 50 MG TAB PO SCH ×2 (08:39→12:12)
[2019-06-24] MEDS: PREGABALIN 100 MG CAP PO SCH (08:39)
[2019-06-24] MEDS: FAMOTIDINE 20 MG TAB PO SCH (08:39)
[2019-06-24] MEDS: LAMOTRIGINE 25 MG TAB PO SCH (08:39)
[2019-06-24] MEDS: FUROSEMIDE 40 MG TAB PO SCH (08:40)
[2019-06-24] MEDS: PSYLLIUM (SUGAR FREE) PACKET PO SCH ×2 (08:42→12:14)
[2019-06-24] MEDS: ENOXAPARIN 40 MG/0.4 ML SYG SC SCH (08:44)
[2019-06-24] MEDS: BALSAM PERU/CASTOR OIL 60 GM TUBE TOP SCH (08:44)
[2019-06-24] MEDS ORDERED: MULTIVITAMINS THERAPEUTIC TAB PO SCH (09:00)
[2019-06-24] MEDS ORDERED: ZINC SULFATE 220 MG CAP PO SCH (09:00)
[2019-06-24] MEDS ORDERED: ASCORBIC ACID 500 MG TAB PO SCH (09:00)
[2019-06-24] MEDS ORDERED: FOLIC ACID 1 MG TAB PO SCH (09:00)
[2019-06-24 14:00] VITALS: BP 132/80; PULSE 100; RESP 18
[2019-06-24] MEDS ORDERED: TESTOSTERONE CYPIONATE 200 MG/ML INJ IM ONE (14:30)
== END 2019-06-24 16:10 | disposition home health service (06) | DRG 871 ==
LOC: MS1 15:53 → 6WM 17:56 → ICU 06-10 17:30 → TEL 06-15 19:07 → 5EC 06-19 20:25 → MS3 06-20 13:50
PROVIDERS: ADMIT Internal Medicine; ATTEND Internal Medicine
DX: A41.9 Sepsis, unspecified organism (principal); J96.01 Acute respiratory failure with hypoxia; J69.0 Pneumonitis due to inhalation of food and vomit; E43 Unspecified severe protein-calorie malnutrition; Z68.1 Body mass index [BMI] 19.9 or less, adult; K52.1 Toxic gastroenteritis and colitis; R65.20 Severe sepsis without septic shock; E10.42 Type 1 diabetes mellitus with diabetic polyneuropathy; E10.43 Type 1 diabetes mellitus with diabetic autonomic (poly)neuropathy; K31.84 Gastroparesis; R62.7 Adult failure to thrive; F41.9 Anxiety disorder, unspecified; R33.9 Retention of urine, unspecified; R53.81 Other malaise; R34 Anuria and oliguria; G89.4 Chronic pain syndrome; E10.649 Type 1 diabetes mellitus with hypoglycemia without coma; E10.65 Type 1 diabetes mellitus with hyperglycemia; T45.0X5A Adverse effect of antiallergic and antiemetic drugs, initial encounter; Y92.230 Patient room in hospital as the place of occurrence of the external cause; Z22.322 Carrier or suspected carrier of Methicillin resistant Staphylococcus aureus
CPT/HCPCS: 36600; 71045; 71250; 71275; 72148; 76775; 78264; 80048; 80053; 80202; 81001; 82565; 82710; 82803; 82947; 82962; 83036; 83690; 83735; 84100; 84145; 84443; 84520; 85025; 85610; 86021; 86038; 86140; 86226; 86255; 86703; 87045; 87070; 87075; 87081; 87177; 92526; 92610; 93308; 94640; 94664; 97110; 97116; 97162; 97164; 97530; A9541; J0692; J0696; J1071; J1650; J1815; J1885; J1940; J2270; J2405; J2920; J2930; J3370; J3480; J7040; J7042; J7050; J7512; Q9967